=== PATIENT | male | born 1930 | race Caucasian/White ===

== ENCOUNTER → 2017-01-17 | Outpatient (CLI) | payer OTHER, MEDICARE ==
[2015-01-14 14:12] VITALS: BP 145/71; PULSE 55
[~2017-01-17] MED LIST: ASPCH81; CLTP PO; ECHI80CA PO; MISC1CAP60 PO; PRLSR20 PO; SIMV20TA2 PO
[2017-01-17 13:07] VITALS: BP 155/74; PULSE 55; TEMP 36.7; O2SAT 95
--- NOTE | 2017-01-17 13:54 | Radiation Oncology Follow-Up ---
Radiation Oncology Follow-Up Date of Visit Jan 17, 2017. 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 Biopsy stage TIIb Tab grade 3+4 Status post one year of hormone suppression status post completion of radiation therapy 07/08/2002 Last Edited By: Dianan Worrell on Jan 14, 2015 15:49 Interim History He is been doing well over this past year. Today he gave an AUA score 1.5. Last year his score was 2.0. He completed and expanded prostate cancer index composite for clinical practice and gave a score of 0 of 12 and urinary incontinence symptoms. He gave a score of 0 of 12 urinary irritation symptoms. He gave a score of 0 of 12 and bowel symptoms. He gave a score of 9 of 12 in sexual symptoms. He gave a score of 0 of 12 in hormonal vitality symptoms. His total was 9 of 60. He had a PSA prior to his visit. This was performed at [facility]. This was 1.20 performed on 01/03/2016. His prior PSA on 01/07/2016 was 1.23. Allergies Coded Allergies: Penicillins (Verified Allergy, Severe, 01/13/10) FACIAL SWELLING Home Medications Scheduled Aspirin (Aspirin Tab-Chewable *), DAILY Calcium/Vitamin D (Caltrate 600 Plus *), 2 TAB PO BID Echinacea (Echinacea), 1 CAP PO DAILY Misc Natural Products (Saw [place]), 1 CAP PO DAILY Omeprazole (Prilosec), 20 MG PO DAILY Simvastatin (Zocor), 20 MG PO QPM Review of Systems Gastrointestinal: Symptoms: WNL GI Comments: No fiber supplements Oral: Symptoms: No Problems Respiratory: Symptoms: WNL, SOB With Exertion Urinary: Symptoms: Nocturia Comments: Nocturia x 1-2, See AUA & EPIC Skin: Symptoms: No Problems Physical Exam Vital Signs Date Time Temp Pulse Resp B/P (MAP) Pulse Ox O2 Delivery O2 Flow Rate FiO2 01/17/17 13:07 36.7 55 22 155/74 95 Pain: Side: Bilateral Patient Pain Scale: 0 - 10 Initial Pain Intensity: 0.0 Fatigue: None General Appearance: no apparent distress, + obese Eyes: normal inspection, EOMI ENT: normal ENT inspection, hearing grossly normal Neck: no adenopathy Respiratory/Chest: lungs clear, no respiratory distress, no accessory muscle use Cardiovascular: regular rate, rhythm, no gallop, no murmur Abdomen: non tender, soft, no organomegaly Anal / Rectum: Normal sphincter tone. Prostate is smooth without nodules. No rectal masses no rectal bleeding. Neurologic/Psychiatric: no motor/sensory deficits, alert, normal mood/affect Skin: warm/dry Laboratory Studies PSA is as reviewed above. Assessment & Plan Plan: Continue regular follow-up with his primary care physician. We once again discussed the erectile dysfunction. If he feels this is an issue he can discuss this with Dr. Fritz. We reviewed his PSA values over the past 2 years. He previously discussed declined DEXA scanning. We asked him to return to our office in 1 year. An order was given to have a PSA prior to his visit. He may call if he has any questions or concerns in the interim. Total Time In Follow-Up I spent 20 minutes speaking to the patient performing examination. I spent 15 minutes reviewing information in completing this note. Copy To Cecil Fritz D.O.
== END | disposition home or self-care (01) ==
LOC: C.ONC 12:49
PROVIDERS: ATTEND Physician Assistant Medical
DX: Z08 Encounter for follow-up examination after completed treatment for malignant neoplasm (principal); Z92.3 Personal history of irradiation; Z85.46 Personal history of malignant neoplasm of prostate